=== PATIENT | male | born 1970 | race Two or more races ===

== ENCOUNTER 2020-03-02 14:13 | Emergency (ER) | payer SELFPAY ==
[~2020-03-02] VITALS: Ht 175.3 cm; Wt 102.0 kg
[2020-03-02 14:29] VITALS: BP 140/83
[2020-03-02 15:00] LABS: BILIRUBIN,URINE NEGATIVE (NEG); CLARITY,URINE CLOUDY; COLOR,URINE YELLOW; NITRITE,URINE NEGATIVE (NEG); PROTEIN,URINE 30 mg/dL (NEG-TRACE)
[2020-03-02 15:06] LABS: BACTERIA,URINE 0 /HPF (0-FEW); RBC,URINE >40 /HPF (0-2); WBC,URINE TNTC /HPF (0-4)
--- NOTE | 2020-03-02 15:15 | PHYS DOC ---
Past Medical History Past Medical History: Other Additional Past Medical Histor: PRE DM (MIKE JONHSTON APRN) Past Surgical History: No Surgical History (MIKE JOHNSTON APRN) Smoking Status: Current Every Day Smoker Alcohol Use: None (MIKE JOHNSTON APRN) General Adult EDM: Chief Complaint: BLOOD IN URINE HPI: HPI: Patient is a 49 year old male who presents with complaints of burning with urination also noticed blood in his urine starting 2 days ago, also complains of constipation for the past 3 days stating that his last normal bowel movement was 3 days ago. Patient denies any pain or discomfort at this time. Patient states he only has pain when he urinates. Patient describes his pain is a burning sensation that he rates it about a 5/10 on a 1-10 pain scale. Patient denies any recent fever chills, any vision changes, nasal congestion, cough, shortness of breath, chest pain, or swelling of his extremities. Patient denies any abdominal pain, nausea, vomiting, diarrhea, or blood in stool. Patient denies any back pain, or pain in his joints. Patient denies any rashes of his skin, patient denies any headaches focal weaknesses or sensory changes. Patient denies any increased thirst or increased urination. Patient denies any depressions anxieties homicidal or suicidal ideation. (MIKE JOHNSTON APRN) Review of Systems: Review of Systems: Constitutional: Denies fever or chills. Eyes: Denies change in visual acuity. HENT: Denies nasal congestion or sore throat. Respiratory: Denies cough or shortness of breath. Cardiovascular: Denies chest pain or edema. GI: Denies abdominal pain, nausea, vomiting, bloody stools or diarrhea. Patient complains of constipation for the past 3 days. : Complains of burning with urination, also has blood in his urine. Musculoskeletal: Denies back pain or joint pain. Integument: Denies rash. Neurologic: Denies headache, focal weakness or sensory changes. Endocrine: Denies polyuria or polydipsia. Lymphatic: Denies swollen glands. Psychiatric: Denies depression or anxiety. (MIKE JOHNSTON APRN) Heart Score: Risk Factors: Risk Factors: DM, Current or recent (<one month) smoker, HTN, HLP, family history of CAD, obesity. Risk Scores: Score 0 - 3: 2.5% MACE over next 6 weeks - Discharge Home Score 4 - 6: 20.3% MACE over next 6 weeks - Admit for Clinical Observation Score 7 - 10: 72.7% MACE over next 6 weeks - Early Invasive Strategies (MIKE JOHNSTON APRN) Allergies: Allergies: Allergies Coded Allergies Type Severity Reaction Last Updated Verified No Known Drug Allergies 03/02/20 No (MIKE JOHNSTON APRN) Physical Exam: PE: Constitutional: Well developed, well nourished, no acute distress, non-toxic appearance. HENT: Normocephalic, atraumatic, bilateral external ears normal, oropharynx moist, no oral exudates, nose normal. Eyes: PERRLA, EOMI, conjunctiva normal, no discharge. Neck: Normal range of motion, no tenderness, supple, no stridor. Cardiovascular:Heart rate regular rhythm, no murmur Lungs & Thorax: Bilateral breath sounds clear to auscultation Abdomen: Bowel sounds normal, soft, no tenderness, no masses, no pulsatile masses. Skin: Warm, dry, no erythema, no rash. Back: No tenderness, no CVA tenderness. Extremities: No tenderness, no cyanosis, no clubbing, ROM intact, no edema. Neurologic: Alert and oriented X 3, normal motor function, normal sensory function, no focal deficits noted. Psychologic: Affect normal, judgement normal, mood normal. (MIKE JOHNSTON APRN) Current Patient Data: Labs: Laboratory Tests Test 03/02/20 14:20 Urine Collection Type Unknown Urine Color Yellow Urine Clarity Cloudy Urine pH 6.0 (<5.0-8.0) Urine Specific Boelus 1.025 (1.000-1.030) Urine Protein 30 mg/dL (NEG-TRACE) Urine Glucose (UA) Negative mg/dL (NEG) Urine Ketones (Stick) Negative mg/dL (NEG) Urine Blood Large (NEG) Urine Nitrite Negative (NEG) Urine Bilirubin Negative (NEG) Urine Urobilinogen Dipstick 1.0 mg/dL (0.2 mg/dL) Urine Leukocyte Esterase Moderate (NEG) Urine RBC >40 /HPF (0-2) Urine WBC Tntc /HPF (0-4) Urine Squamous Epithelial Cells Mod /LPF Urine Bacteria 0 /HPF (0-FEW) Urine Mucus Marked /LPF Vital Signs: Vital Signs Date Time Temp Pulse Resp B/P (MAP) Pulse Ox O2 Delivery O2 Flow Rate FiO2 03/02/20 14:29 98.3 80 16 140/83 (102) 97 Room Air 98.3 (MIKE JOHNSTON APRN) EKG: EKG: [] (MIKE JOHNSTON APRN) Radiology/Procedures: Radiology/Procedures: PATIENT: GEM SALMON AACCOUNT: [id number] : 1970 LOCATION: ER AGE: 49 SEX: M EXAM STATUS: REG ER ORD. PHYSICIAN: MIKE JOHNSTON APRN REASON: CONSTIPATION PROCEDURE: KUB Examination: KUB History: Reason: CONSTIPATION / Comparison/Correlation: None Findings: Portable frontal view of the abdomen was obtained. Moderate quantity of stool is present involving the ascending colon. No significant quantity of stool otherwise seen. No suspicious abdominal calcifications. No bowel obstruction. Bony structures are unremarkable for the patient's age. Impression: Moderate quantity of stool in the ascending colon. No suspicious process. Electronically signed by: Donavan Marroquin MD (03/02/2020 3:35 PM) [facility] DICTATED and SIGNED BY: DONAVAN MARROQUIN MD DATE: 03/02/201534 (MIKE JOHNSTON APRN) Course & Med Decision Making: Course & Med Decision Making Pertinent Labs and Imaging studies reviewed. (See chart for details) 49-year-old male patient presents to emergency department with burning on urination with blood in his urine also complained of constipation for the past 3 days. Patient's urine is concerning for infectious process, a KUB x-ray was performed which showed constipation in the ascending colon. Findings were discussed with patient as patient presentation and lab values are consistent with acute cystitis, and constipation. Patient was started on Bactrim DS in the emergency department and also given a bottle of mag citrate prior to his dismissal. Discussed with patient home care instructions along with prescription instructions, return to ER precautions, and need to follow-up with primary care physician soon. Patient gave verbal understanding of these i nstructions, had no further questions or concerns, patient discharged home without incident. (MIKE JOHNSTON APRN) Course & Med Decision Making I have reviewed the PA/SYSTEMS QA ANALYST's note and Plan of Care. I was available for co nsultation as needed during the patient's visit in the emergency department. I agree with the clinical impression, plans and disposition. (NAVIN MAYNARD MD) Dragon Disclaimer: Dragon Disclaimer: This electronic medical record was generated, in whole or in part, using a voice recognition dictation system. (MIKE JOHNSTON APRN) Departure Departure Impression: Primary Impression: Cystitis Additional Impressions: UTI (urinary tract infection) Qualified Codes: N30.01 - Acute cystitis with hematuria Constipation Qualified Codes: K59.00 - Constipation, unspecified Hematuria due to acute cystitis Disposition: DC HOME SELF CARE/HOMELESS Condition: GOOD Referrals: NO PCP (PCP) Patient Instructions: Hematuria, Adult, Urinary Retention, Acute, Male, [id number] Additional Instructions: Take medications as prescribed, return to the emergency department if symptoms do not resolve soon or worsen, follow-up with your doctor as needed. Scripts Magnesium Citrate (MAGNESIUM CITRATE) 296 Ml Solution 296 ML PO 1X, #1 MISC 0 Refills Prov: MIKE JOHNSTON APRN 03/02/20 Sulfamethoxazole/Trimethoprim (BACTRIM DS TABLET) 1 Each Tablet 1 TAB PO BID for 10 Days, #20 TAB 0 Refills Prov: MIKE JOHNSTON APRN 03/02/20 MIKE JOHNSTON APRN Mar 02, 2020 15:14 NAVIN MAYNARD MD Mar 03, 2020 06:01
--- NOTE | 2020-03-02 15:38 | RAD ---
Examination: KUB History: Reason: CONSTIPATION / Comparison/Correlation: None Findings: Portable frontal view of the abdomen was obtained. Moderate quantity of stool is present involving the ascending colon. No significant quantity of stool otherwise seen. No suspicious abdominal calcifications. No bowel obstruction. Bony structures are unremarkable for the patient's age. Impression: Moderate quantity of stool in the ascending colon. No suspicious process. Electronically signed by: Donavan Hernandez MD (03/02/2020 3:35 PM) [facility]
[2020-03-02] MEDS ORDERED: MAGN296S68 PO (16:12)
[2020-03-02] MEDS ORDERED: SULF1TAB24 PO (16:12)
[2020-03-02] MEDS ORDERED: MAGNESIUM CITRATE 296 ML SOLUTION. PO ONE (16:15)
[2020-03-02] MEDS ORDERED: SMZ/TMP 800/160MG TABLET. PO ONE (16:15)
== END 2020-03-02 16:33 | disposition home or self-care (01) ==
LOC: ER 14:13
DX: N30.01 Acute cystitis with hematuria (principal); K59.00 Constipation, unspecified; F17.200 Nicotine dependence, unspecified, uncomplicated
CPT/HCPCS: 74018; 81001; 87086; 99284